=== PATIENT | male | born 1995 | race Caucasian/White ===

== ENCOUNTER 2018-06-19 01:04 | Emergency (ER) | payer BC, OTHER ==
--- NOTE | 2018-06-19 02:04 | XR ---
EXAMINATION TYPE: XR forearm LT DATE OF EXAM: 06/19/2018 COMPARISON: NONE HISTORY: Elbow pain TECHNIQUE: 2 views FINDINGS: I see no fracture nor dislocation. Wrist joint and elbow joint appear intact. IMPRESSION: Negative left forearm exam.
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
[2018-06-19 02:17] VITALS: BP 150/75; PULSE 84; RESP 20; TEMP 97.4
== END 2018-06-19 02:17 | disposition home or self-care (01) ==
LOC: EC 01:04
DX: S50.02XA Contusion of left elbow, initial encounter (principal); F17.200 Nicotine dependence, unspecified, uncomplicated; Z88.0 Allergy status to penicillin; Z88.6 Allergy status to analgesic agent; V89.2XXA Person injured in unspecified motor-vehicle accident, traffic, initial encounter; Y92.89 Other specified places as the place of occurrence of the external cause
CPT/HCPCS: 99284